=== PATIENT | male | born 1980 | race African-American/Black ===

== ENCOUNTER 2017-12-05 09:06 | Emergency (ER) | payer MEDICAID ==
[~2017-12-05] VITALS: Ht 167.6 cm; Wt 63.5 kg
[2017-12-05 09:20] VITALS: BP 120/66
--- NOTE | 2017-12-05 09:41 | Emergency Room Report ---
History of Present Illness General Chief Complaint: Skin Rash/Abscess Source: Patient Present Illness HPI The patient presents with bugs crawling out of his skin. He's been doing methamphetamine and also shooting up with other IV drugs. He's also been skin popping. He states his tetanus is up-to-date. There are sores on his skin. He says there were abscessed on his arms and L leg. There is no drainage at this time. He denies fevers or chills. He denies pain to RN but claims pain in L leg = 4/10, aching, constant and not radiating. No edema or calf tenderness. No cough, chest pain, NVD, headache. The patient has a history of HIV and hepatitis C. He states he is on antivirals and has been taking those medications. It's been a while since he's had follow-up. The patient is an "unstable" living situation. He knows how to approach getting into more stable place through his clinic. No SI or HI. Allergies: Coded Allergies: No Known Allergies (Unverified , 12/05/17) Patient History Past Medical History: see triage record Social History: Reports: smoking, drug use Social History Narrative on the streets Reviewed Nursing Documentation: PMH: Agreed; PSxH: Agreed Nursing Documentation-PMH Past Medical History: No History, Except For Review of Systems All Other Systems: negative except mentioned in HPI Physical Exam Vital Signs Date Time Temp Pulse Resp B/P (MAP) Pulse Ox O2 Delivery O2 Flow Rate FiO2 12/05/17 09:16 97.9 112 16 120/66 98 Room Air 97.9 Sp02 EP Interpretation: reviewed, normal General Appearance: well appearing, no apparent distress, GCS 15 Head: normocephalic Eyes: bilateral eye normal inspection, bilateral eye PERRL ENT: moist mucus membranes Neck: supple Respiratory: lungs clear, normal breath sounds Cardiovascular #1: regular rate, rhythm Cardiovascular #2: 2+ radial (R) Gastrointestinal: normal inspection, normal bowel sounds, non tender, no mass, non-distended Musculoskeletal: back normal, gait/station normal, normal range of motion Neurologic: alert, oriented x3, grossly normal Psychiatric: mood/affect normal, no suicidal/homicidal ideation Skin: warm/dry, other - scabs and lesions L arm, no fluctuance. Older wound L lower leg, medially tibial area Medical Decision Making Diagnostic Impression: Primary Impression: Cellulitis Qualified Codes: L03.90 - Cellulitis, unspecified Additional Impression: amphetamine dermatitis ER Course Patient with skin lesions. DDX: cellulitis, abscess, amphetamine dermatitis, allergies, bug bites amongst others. Tetanus is UTD. Not toxic. Needs antibiotics and analgesia. Admits amphetamine use. Also HIV but states on antivirals. VS with minimal tachycardia (otherwise normal) therefore no labs indicated. No SI. Working to get into more stable living situation and states he knows how to do so. Patient stable for outpatient observation and treatment. Last Vital Signs Date Time Temp Pulse Resp B/P (MAP) Pulse Ox O2 Delivery O2 Flow Rate FiO2 12/05/17 10:05 97.9 115 16 120/66 98 Room Air 97.9 Status: improved Disposition: HOME, SELF-CARE Condition: Improved Scripts Acetaminophen (Tylenol) 325 Mg Tablet 650 MG ORAL Q6H PRN for Prn Pain/Headache/Temp > 101, #30 TAB 0 Refills Prov: Balbir Resendez M.D. 12/05/17 Diphenhydramine Hcl* (BENADRYL*) 25 Mg Capsule 25 MG ORAL Q6H PRN for Itching, #14 CAP Prov: Balbir Resendez M.D. 12/05/17 Bacitracin (Bacitracin) 28.4 Gm Oint...g. 1 APPLIC TOPIC BID, #20 GM Prov: Balbir Resendez M.D. 12/05/17 Trimethoprim/Sulfamethoxazole 160/800* (BACTRIM DS TABLET*) 1 Each Tablet 1 TAB ORAL Q12H, #14 TAB 0 Refills Prov: Balbir Resendez M.D. 12/05/17 Balbir Resendez M.D. Dec 05, 2017 09:41
[2017-12-05] MEDS ORDERED: BACITRACIN15 GM TOPIC (09:44)
[2017-12-05] MEDS ORDERED: TYLENOL325 MG ORAL (09:44)
[2017-12-05] MEDS ORDERED: BACTRIM DS TAB1 EAC1 ORAL (09:44)
[2017-12-05] MEDS ORDERED: BENADRYL25 MG ORAL (09:44)
[2017-12-05] MEDS ORDERED: Bactrim-DS 1 tab ORAL ONE (09:45)
[2017-12-05] MEDS ORDERED: Bacitracin Oint UD TOPIC ONE (09:45)
[2017-12-05 10:05] VITALS: BP 120/66
== END 2017-12-05 10:05 | disposition home or self-care (01) ==
LOC: EMR 09:40
DX: L03.114 Cellulitis of left upper limb (principal); L27.1 Localized skin eruption due to drugs and medicaments taken internally; T43.625A Adverse effect of amphetamines, initial encounter; Y92.9 Unspecified place or not applicable
CPT/HCPCS: 99284

== ENCOUNTER 2018-01-07 09:42 | Emergency (ER) | payer MEDICAID ==
[~2018-01-07] VITALS: Ht 167.6 cm; Wt 68.0 kg
[~2018-01-07 09:42] MED LIST: BACITRACIN15 GM TOPIC; BACTRIM DS TAB1 EAC1 ORAL; BENADRYL25 MG ORAL; TYLENOL325 MG ORAL
--- NOTE | 2018-01-07 10:00 | Emergency Room Report ---
History of Present Illness General Chief Complaint: To Be Triaged Source: Patient Present Illness HPI The patient presents with itching of his skin and believes that he has scabies or lice. He believes they are jumping off of him when he brushes his hair. He' s been seen for this in the past. He was advised that most likely this is related to drug usage. He states that there was itching before he gets high but admits to doing drugs recently. His tetanus vaccination is up-to-date. He is mainly complaining about itching. There have been no fevers or chills. There is no drainage from the bumps on his arms or feet. He was treated with Bactrim and bacitracin. The patient denies chest pain, nausea, vomiting,, diarrhea, dysuria, joint pain. Patient denies suicidal or homicidal ideation. He denies headache. Allergies: Coded Allergies: No Known Allergies (Unverified , 12/05/17) Patient History Past Medical History: see triage record Social History: Reports: smoking, drug use Social History Narrative lives on the streets Reviewed Nursing Documentation: PMH: Agreed; PSxH: Agreed Review of Systems All Other Systems: negative except mentioned in HPI Physical Exam Vital Signs Date Time Temp Pulse Resp B/P (MAP) Pulse Ox O2 Delivery O2 Flow Rate FiO2 01/07/18 09:59 97.2 114 26 133/80 96 Room Air 97.2 Sp02 EP Interpretation: reviewed, normal General Appearance: well appearing, no apparent distress, GCS 15, non-toxic Head: normocephalic, atraumatic Eyes: bilateral eye PERRL, bilateral eye Scleral Injection ENT: hearing grossly normal, normal voice, moist mucus membranes Neck: full range of motion, supple Respiratory: no respiratory distress, speaking full sentences Cardiovascular #1: tachycardia Cardiovascular #2: 2+ radial (L) Gastrointestinal: normal inspection, scaphoid Musculoskeletal: back normal, digits/nails normal, gait/station normal, normal range of motion, no calf tenderness Neurologic: alert, oriented x3, normal gait, grossly normal Psychiatric: anxious Skin: other - picking and excoriated lesions mainly on arms. No lice or nits seen. No lesions between toes or fingers Medical Decision Making Diagnostic Impression: Primary Impression: Skin rash Additional Impression: Amphetamine abuse ER Course The patient presents with itching and lesions on his skin. Differential includes scabies, cellulitis, amphetamine-related pruritus amongst others. The patient will be treated with permethrin cream and Benadryl. We will be checking a drug tox screen. Tox + for amphetamines and THC. Improved with treatment. Again advised to stop the drugs to stop the itching. Patient stable for outpatient observation and treatment. Laboratory Tests Test 01/07/18 10:12 Urine Color Yellow Urine Appearance Clear Urine pH 5 (4.5-8.0) Urine Specific [place] 1.025 (1.005-1.035) Urine Protein 2+ (NEGATIVE) H Urine Glucose (UA) Negative (NEGATIVE) Urine Ketones 1+ (NEGATIVE) H Urine Occult Blood Negative (NEGATIVE) Urine Nitrite Negative (NEGATIVE) Urine Bilirubin Negative (NEGATIVE) Urine Urobilinogen 4 MG/DL (0.0-1.0) H Urine Leukocyte Esterase 1+ (NEGATIVE) H Urine RBC 0 /HPF (0 - 0) Urine WBC 0-2 /HPF (0 - 0) Urine Squamous Epithelial Cells Occasional /LPF Urine Bacteria Occasional /HPF (NONE) Urine Mucus Few /LPF (NONE/OCC) H Urine Opiates Screen Negative (NEGATIVE) Urine Barbiturates Screen Negative (NEGATIVE) Phencyclidine (PCP) Screen Negative (NEGATIVE) Urine Amphetamines Screen Positive (NEGATIVE) H Urine Benzodiazepines Screen Negative (NEGATIVE) Urine Cocaine Screen Negative (NEGATIVE) Urine Marijuana (THC) Screen Positive (NEGATIVE) H Last Vital Signs Date Time Temp Pulse Resp B/P (MAP) Pulse Ox O2 Delivery O2 Flow Rate FiO2 01/07/18 10:59 98.3 79 18 122/70 99 Room Air 97.2 Status: improved Disposition: HOME, SELF-CARE Condition: Improved Scripts Diphenhydramine Hcl* (BENADRYL*) 25 Mg Capsule 25 MG ORAL Q6H PRN for Itching, #20 CAP Prov: Balbir Resendez M.D. 01/07/18 Permethrin* (ELIMITE*) 60 Gm Cream..g. 1 APPLIC TOPIC ONCE, #1 TUBE 0 Refills Apply cream from head to toe; leave on for 8-14 hours before washing off with water Prov: Balbir Resendez M.D. 01/07/18 Balbir Resendez M.D. January 07, 2018 09:59
[2018-01-07] MEDS ORDERED: UNOBMED (10:01)
[2018-01-07 10:13] VITALS: BP 130/71
[2018-01-07 10:25] LABS: APPEARANCE,URINE CLEAR; BILIRUBIN, URINE NEGATIVE (NEGATIVE); GLUCOSE, URINE (UA) NEGATIVE (NEGATIVE); KETONES,URINE 1+ (NEGATIVE); LEUKOCYTE ESTERASE ,URINE 1+ (NEGATIVE); NITRITE,URINE NEGATIVE (NEGATIVE); PH,URINE 5 (4.5-8.0); PROTEIN,URINE 2+ (NEGATIVE); UROBILINOGEN,URINE 4 MG/DL (0.0-1.0)
[2018-01-07 10:33] LABS: COLOR,URINE YELLOW
[2018-01-07] MEDS ORDERED: PERMETHRIN60 GM TOPIC (10:51)
[2018-01-07] MEDS ORDERED: BENADRYL25 MG ORAL (10:51)
[2018-01-07 10:59] VITALS: BP 122/70
== END 2018-01-07 10:59 | disposition home or self-care (01) ==
LOC: EMR 09:55
DX: R21 Rash and other nonspecific skin eruption (principal); F15.10 Other stimulant abuse, uncomplicated
CPT/HCPCS: 80307; 81003; 99284

== ENCOUNTER 2019-10-15 14:46 | Emergency (ER) | payer MEDICAID ==
[~2019-10-15] VITALS: Ht 172.7 cm; Wt 68.0 kg
[~2019-10-15 14:46] MED LIST changes: +PERMETHRIN60 GM TOPIC; +UNOBMED
--- NOTE | 2019-10-15 14:58 | NUR ---
Jyothi bain in EDM - 10/15/19 at 1654 by PARKER ED Nurse Note: PT CALLED INTO TRIAGE. NOT PRESENT IN WAITING ROOM
[2019-10-15 15:10] VITALS: BP 126/79
--- NOTE | 2019-10-15 15:10 | NUR ---
ED Nurse Note: Pt was brought in by ambulance from street d/t adbominal pain since this morning 04/06. Pt stated that he had one episode of vomiting this morning. Respirations even and unlabored on room air. Vitals stable as documented. A+Ox4, denies SOB.
[2019-10-15] MEDS ORDERED: DEPAKOTE125 MG PO (15:15)
[2019-10-15] MEDS ORDERED: ABILIFY2 MG ORAL (15:15)
[2019-10-15] MEDS ORDERED: Mylanta II UD 30ml ORAL ONE (15:30)
[2019-10-15] MEDS ORDERED: Dicyclomine HCl 10mg/5ml oral soln ORAL ONE (15:30)
[2019-10-15] MEDS ORDERED: Lidocaine 2% Visc 15ml soln ORAL ONE (15:30)
[2019-10-15] MEDS ORDERED: Morphine Sulfate 2mg/ml Inj(IV/IM USE ONLY) IM ONE (15:30)
--- NOTE | 2019-10-15 15:46 | Emergency Room Report ---
History of Present Illness General Chief Complaint: Abdominal Pain Source: Patient, Medical Record Present Illness HPI 39-year-old male presents ED for evaluation. Complaining of abdominal pain. Brought in by EMS from Street. Pain started earlier today. Epigastric, dull, 7 out of 10, nonradiating. Notes one episode of vomiting. Denies chest pain or shortness of breath. Denies diarrhea. Denies fevers or chills. No other aggravating or relieving factors. Denies any other associated symptoms Allergies: Coded Allergies: No Known Allergies (Unverified , 12/05/17) Patient History Past Medical History: none Past Surgical History: none Pertinent Family History: none Social History: Denies: smoking, alcohol use, drug use Immunizations: UTD Reviewed Nursing Documentation: PMH: Agreed; PSxH: Agreed Review of Systems All Other Systems: negative except mentioned in HPI Physical Exam Vital Signs Date Time Temp Pulse Resp B/P (MAP) Pulse Ox O2 Delivery O2 Flow Rate FiO2 10/15/19 15:06 97.9 69 16 122/83 (96) 99 Sp02 EP Interpretation: reviewed, normal General Appearance: no apparent distress, alert, GCS 15, non-toxic Head: normocephalic, atraumatic Eyes: bilateral eye normal inspection, bilateral eye PERRL ENT: hearing grossly normal, normal pharynx, no angioedema, normal voice Neck: full range of motion, supple/symm/no masses Respiratory: chest non-tender, lungs clear, normal breath sounds, speaking full sentences Cardiovascular #1: regular rate, rhythm, no edema Cardiovascular #2: 2+ carotid (R), 2+ carotid (L), 2+ radial (R), 2+ radial (L) , 2+ dorsalis pedis (R), 2+ dorsalis pedis (L) Gastrointestinal: normal bowel sounds, soft, non-distended, no guarding, no rebound, tenderness - epigastric Rectal: deferred Genitourinary: normal inspection, no CVA tenderness Musculoskeletal: back normal, normal range of motion, gait/station normal, non- tender Neurologic: alert, motor strength/tone normal, oriented x3, sensory intact, responsive, speech normal Psychiatric: judgement/insight normal, memory normal, mood/affect normal, no suicidal/homicidal ideation Reflexes: 3+ bicep (R), 3+ bicep (L), 3+ tricep (R), 3+ tricep (L), 3+ knee (R) , 3+ knee (L) Lymphatic: no adenopathy Medical Decision Making Homeless Attestation I, The treating physician Dr. Dominique, have assessed and agrees that patient is medically stable for discharge to an outpatient disposition. Diagnostic Impression: Primary Impression: Gastritis Qualified Codes: K29.00 - Acute gastritis without bleeding ER Course Hospital Course 39-year-old M presents to ED with epigastric pain with N/V. differential diagnosis: gastritis, SBO, cholecystits Clinical course Patient placed on stretcher. On blower blast furnace. After initial history, exam reveals male in no acute distress. Abdomen soft no guarding or rebound. Tender epigastric. Vitals stable. patient given pepcid, pain meds, GI cocktail, Zofran. On reassessment pain improved. Safe for discharge for close outpatient follow- up. Homeless checklist completed. I will provide referrals I feel this is a highly complex case requiring extensive working including EKG/ Rhythm strip, Xray/CT/US, Blood/urine lab work, repeat exams while in ED, and administration of strong opiates/narcotics for pain control, admission to hospital or close patient follow up. Diagnosis - gastritis Stable and discharged to home with prescriptions for Zantac, zofran. Followup with PMD. Return to ED if symptoms recur or worsen Last Vital Signs Date Time Temp Pulse Resp B/P (MAP) Pulse Ox O2 Delivery O2 Flow Rate FiO2 10/15/19 15:06 97.9 69 16 122/83 (96) 99 Status: improved Disposition: HOME, SELF-CARE Condition: Stable Scripts Ranitidine Hcl* (ZANTAC*) 150 Mg Tablet 150 MG ORAL TWICE A DAY, #30 TAB Prov: Rush Dominique MD 10/15/19 Ondansetron Odt* (ZOFRAN ODT*) 4 Mg Tab.rapdis 4 MG BC EVERY 6 HOURS PRN for Nausea & Vomiting, #20 TAB 0 Refills Prov: Rush Dominique MD 10/15/19 Rush Dominique MD Oct 15, 2019 15:46
[2019-10-15] MEDS ORDERED: RANITIDINE HCL150 MG ORAL (16:02)
[2019-10-15] MEDS ORDERED: ONDANSETRON ODT4 MG BC (16:02)
[2019-10-15 16:15] VITALS: BP 123/79
--- NOTE | 2019-10-15 16:15 | NUR ---
Homeless Discharge: Patient is being discharged from medical care. Awake, alert and oriented x4. After care instructions, including referral to community resources were given. Patient verbalized understanding of After care instructions; at this time patient does not request medications, equipment or placement. Prescriptions were given to pt and pt understood all instructions. Patient signed patient consent in the medical record for patient destination upon discharge, but refused to disclose where he would be going upon discharge. All medical devices such as ID band were removed. Patient ambulated out with all personal belongings with steady gait. Pt was given juice x 4 and sanwich upon discharge.
== END 2019-10-15 16:15 | disposition home or self-care (01) ==
LOC: EDBD 14:46 → EMR 15:23
DX: K29.00 Acute gastritis without bleeding (principal)
CPT/HCPCS: 96372; J2270; Z7502; 99283

== ENCOUNTER 2019-10-19 18:26 | Emergency (ER) | payer MEDICAID ==
[~2019-10-19] VITALS: Ht 167.6 cm; Wt 63.5 kg
[~2019-10-19 18:26] MED LIST changes: +ABILIFY2 MG ORAL; +DEPAKOTE125 MG PO; +ONDANSETRON ODT4 MG BC; +RANITIDINE HCL150 MG ORAL
[2019-10-19] MEDS ORDERED: ABILIFY2 MG ORAL (18:45)
[2019-10-19] MEDS ORDERED: TRIUMEQ 600-501 EACH PO (18:45)
[2019-10-19 19:00] VITALS: BP 114/84
--- NOTE | 2019-10-19 19:45 | NUR ---
ED Nurse Note: pt presents to ED from home with SI complaint. pt states that he has a long history of SI/HI with previous attempts. per pt the last time he attempted to hurt himself was 5 months ago, he tried to cut his wrists stating "it's the easiest way." pt admits that he has been off of his meds for years "because of life." pt mentions that he "occasionally" has thoughts of hurting others, he does not specify who he wants to hurt, states it is random. pt admits to taking meth today. he does not appear to be in any distress at this time, affect is flat, he follows commands, is AOx4, breathing is even and nonlabored. all safety precautions are in place
--- NOTE | 2019-10-19 19:46 | NUR ---
ED Nurse Note: when asked if pt is in any pain, he states "just heartache"
--- NOTE | 2019-10-19 19:50 | NUR ---
PT BELONGINGS PLACED IN BOTTOM PSYCH LOCKER WITH PATIENT LABELS ON ALL BELONGINGS
--- NOTE | 2019-10-19 20:00 | NUR ---
ED Nurse Note: unable to establish IV line, blood and urine were drawn and sent to lab. Charge nurse aware, MOISES notified
[2019-10-19 20:10] LABS: BILIRUBIN, URINE NEGATIVE (NEGATIVE); GLUCOSE, URINE (UA) NEGATIVE (NEGATIVE); KETONES,URINE NEGATIVE (NEGATIVE); LEUKOCYTE ESTERASE ,URINE NEGATIVE (NEGATIVE); NITRITE,URINE NEGATIVE (NEGATIVE); PH,URINE 7 (4.5-8.0); PROTEIN,URINE NEGATIVE (NEGATIVE); UROBILINOGEN,URINE 8 MG/DL (0.0-1.0)
[2019-10-19 20:11] LABS: APPEARANCE,URINE CLEAR; COLOR,URINE YELLOW
[2019-10-19 20:40] LABS: HEMATOCRIT 48.7 % (42.0-52.0); MEAN CORPUSCULAR VOLUME 86 FL (80-99); PLATELET COUNT 366 K/UL (150-450); RED BLOOD COUNT 5.68 M/UL (4.70-6.10); WHITE BLOOD COUNT 5.4 K/UL (4.8-10.8)
[2019-10-19 20:43] LABS: BASOPHILS % (AUTO) 2.3 % (0.0-2.0); EOSINOPHILS % (AUTO) 7.1 % (0.0-3.0); LYMPHOCYTES % (AUTO) 55.1 % (20.0-45.0); MONOCYTES % (AUTO) 6.1 % (1.0-10.0); NEUTROPHILS % (AUTO) 29.4 % (45.0-75.0)
--- NOTE | 2019-10-19 21:01 | Emergency Room Report ---
History of Present Illness General Chief Complaint: Suicidal Source: Patient (Sravanthi Eckert) Present Illness HPI 39-year-old male with history of schizophrenia here reporting suicidal ideation. Patient was that he has not taken his Abilify for a long time. Patient wants to cut himself. Denies any homicidal ideation. Denies any attempted suicide. Sitting comfortably with stable vital signs. Denies any drug use, tobacco smoking alcohol intake. Denies all other complaints. (Sravanthi Eckert) Allergies: Coded Allergies: No Known Allergies (Unverified , 12/05/17) Patient History Past Medical History: see triage record Past Surgical History: unable to obtain Family History: none Immunizations: UTD Reviewed Nursing Documentation: PMH: Agreed; PSxH: Agreed (Sravanthi Eckert) Nursing Documentation-PMH Past Medical History: No History, Except For (Sravanthi Eckert) Review of Systems All Other Systems: negative except mentioned in HPI (Sravanthi Eckert) Physical Exam Vital Signs Date Time Temp Pulse Resp B/P (MAP) Pulse Ox O2 Delivery O2 Flow Rate FiO2 10/19/19 18:26 98.4 90 16 114/84 (94) 97 Room Air Sp02 EP Interpretation: reviewed, normal General Appearance: alert/responsive, no apparent distress, GCS 15, non-toxic Head: atraumatic Eyes: PERRL, lids + conjunctiva normal ENT: hearing intact, no angioedema Neck: supple/symm/no masses, no meningismus Respiratory: effort normal, no wheezing, chest symmetrical Cardiovascular: regular rate, rhythm, no edema Gastrointestinal: non-tender, no mass, non-distended, no rebound/guarding, normal bowel sounds Musculoskeletal: gait & station normal, normal ROM, strength & tone normal, non -tender Neurologic: oriented x3, sensory intact, normal speech Suicide Risk Assessment: Suicidal Ideation: Yes Had intent to initiate attempt: Yes Pt's plan for suicide attempt: Yes Has means to complete attempt: Yes Skin: no rash Lymphatic: normal inspection (Sravanthi Eckert) Medical Decision Making PA Attestation All diagnoses and treatment plans were reviewed and discussed with my supervising physician Dr. Resendez (Sravanthi Eckert) Diagnostic Impression: Primary Impression: Methamphetamine abuse Additional Impression: Suicidal ideation ER Course 39-year-old male with history of schizophrenia here reporting suicidal ideation. Patient was that he has not taken his Abilify for a long time. Patient wants to cut himself. Denies any homicidal ideation. Denies any attempted suicide. Sitting comfortably with stable vital signs. Denies any drug use, tobacco smoking alcohol intake. Denies all other complaints. Ddx considered but are not limited to: generalized anxiety disorder, panic attack, depression with psycotic featurs, bipolar disorder, drug overdose Vital signs: are WNL, pt. is afebrile H&PE are most consistent with: Suicidal ideation, methamphetamine abuse ORDERS: Psychiatric order set ED INTERVENTIONS: None required at this time. Patient is medically cleared I signed out the patient to Dr. Dnog at 9:00pm (Sravanthi Eckert) ER Course His anatomy. He presents with a chief complaint of feeling suicidal and depressed. He is also positive for methamphetamine. He told me that he is no longer suicidal and he is want a place to sleep. Will discharge in the morning. He has no criteria for 5150. This patient is a chronic risk of self injury due to poor impulse control, limited coping skills, and judgment intermittently impaired by intoxication. I believe that the available clinical evidence to suggest that these characteristics derived primarily from personality disorder and are likely very stable over time. Hospitalization would likely attenuate risk of self-harm only during halfway period, without lasting risk reduction. Serious self-harm , while possible, would likely be inadvertent, and because of impulsivity, and foreseeable. For these reasons, I do not believe hospitalization would provide meaningful reduction in risk of self-harm. (Kevin Dong MD) Last Vital Signs Date Time Temp Pulse Resp B/P (MAP) Pulse Ox O2 Delivery O2 Flow Rate FiO2 10/19/19 18:26 98.4 90 16 114/84 (94) 97 Room Air (Sravanthi Eckert) Status: improved (Kevin Dong MD) Disposition: HOME, SELF-CARE Condition: Stable Referrals: [facility],REFERRING (PCP) Patient Instructions: Suicidal Feelings: How to Help Yourself Additional Instructions: Stop using drugs. Go to rehab. Follow-up with your doctor in 7 days but return if worse. Sravanthi Eckert Oct 19, 2019 21:01 Kevin Dong MD Oct 19, 2019 23:31
[2019-10-19 21:06] LABS: ANION GAP 10 mmol/L (5-15); BLOOD UREA NITROGEN 13 mg/dL (7-18); CALCIUM 9.4 MG/DL (8.5-10.1); CARBON DIOXIDE 30 MMOL/L (21-32); CHLORIDE 101 MMOL/L (98-107); POTASSIUM 3.7 MMOL/L (3.5-5.1); SODIUM 140 MMOL/L (136-145)
[2019-10-19 21:12] LABS: ALANINE AMINOTRANSFERASE 97 U/L (12-78); ALBUMIN 3.7 G/DL (3.4-5.0); ALBUMIN/GLOBULIN RATIO 0.8 (1.0-2.7); ALKALINE PHOSPHATASE 76 U/L (46-116); ASPARTATE AMINO TRANSFERASE 47 U/L (15-37); BILIRUBIN,TOTAL 0.7 MG/DL (0.2-1.0)
[2019-10-19 21:47] VITALS: BP 116/88
--- NOTE | 2019-10-19 21:47 | NUR ---
Jyothi bain in EDM - 10/19/19 at 2148 by PAMELLAE ED Nurse Note: pt is resting in bed with eyes closed, he does not appear to be in any dsitress at this time.
--- NOTE | 2019-10-19 21:48 | NUR ---
ED Nurse Note: pt is resting in bed with eyes closed, he does not appear to be in any distress at this time. breathing is even and non-labored. safety precautions are in place. nourishment has been offered but pt denies at this time. will continue to closely monitor
[2019-10-19 23:50] VITALS: BP 110/89
--- NOTE | 2019-10-20 00:47 | NUR ---
ED Nurse Note: pt ambulated to restroom with steady gait. has no complaints at this time. vital signs remain stable. pt provided with juice and sandwich per request. safety precautions are in place. will continue to monitor
[2019-10-20 01:53] VITALS: BP 115/87
--- NOTE | 2019-10-20 03:45 | NUR ---
ED Nurse Note: pt is resting in bed with eyes closed, he does not appear to be in any distress at this time. breathing is even and non-labored. safety precautions are in place. will continue to closely monitor
--- NOTE | 2019-10-20 05:00 | NUR ---
ED Nurse Note: pt requested and provided with crackers and juice
[2019-10-20 05:30] VITALS: BP 115/87
--- NOTE | 2019-10-20 05:30 | NUR ---
Homeless Discharge: Patient is being discharged from medical care. Awake, alert and oriented x4. pt left without After care instructions, including referral to community resources. Patient refused to sign patient consent in the medical record for patient destination upon discharge. All medical devices such as IV and ID band were removed. Patient ambulated out with all personal belongings with steady gait, clothing is weather appropriate
== END 2019-10-20 05:30 | disposition home or self-care (01) ==
LOC: EMR 20:00
DX: F15.10 Other stimulant abuse, uncomplicated (principal); R45.851 Suicidal ideations; F20.9 Schizophrenia, unspecified
CPT/HCPCS: 36415; 80053; 80307; 81003; 85025; G0480; G0481; Z7502; 99284